=== PATIENT | male | born 1965 | race Caucasian/White ===

== ENCOUNTER 2017-05-16 08:54 | Day surgery (SDC) | payer BC ==
[2017-05-16] MEDS ORDERED: PROPOFOL 10 MG/ML VIAL IV ONE (08:55)
[2017-05-16] MEDS ORDERED: KETOROLAC 30 MG/ML VIAL IVP ONE (08:55)
[2017-05-16] MEDS ORDERED: LIDOCAINE 2% MDV (20MG/ML) 20ML VIAL IV ONE (08:55)
--- NOTE | 2017-05-16 14:40 | Operative Note ---
DATE OF SURGERY: 05/16/2017 OPERATION: COLONOSCOPY to the cecum with cold snare polypectomy x1. INDICATION: Colorectal cancer screening. This is the patient's first examination. ANESTHESIA: Intravenous sedation was administered by the department of anesthesiology and included Diprivan titrated to effect. PROCEDURE: Following informed consent from this alert individual including a discussion of the risks and benefits of the procedure and an opportunity for the patient to ask questions, the patient was in the left lateral decubitus position. A digital rectal examination was performed. No abnormalities were noted. Following this, the Olympus XWV006 video colonoscope was inserted into the rectum without resistance. The rectal mucosa had a normal appearance with normal folds and distensibility. The colonoscope was advanced up through the colon to the level of the cecum without much difficulty. Throughout the bowel the mucosa appeared normal, the folds were normal, and the bowel was fairly well distensible. There were a few small scattered diverticula noted in the sigmoid region. The cecum was well defined by noting the appendiceal orifice and ileocecal valve. Colon preparation was good. From the base of the cecum, the colonoscope was then withdrawn. No additional changes were noted until the distal rectum as reached. At this point, there was a 4 mm sessile polyp noted at the distal rectum which was removed with 1 application of cold snare polypectomy. Retroflexion in the rectum was unremarkable. The patient tolerated the procedure well and was returned to the recovery area in stable condition. IMPRESSION: 1. A 4 mm distal rectal polyp removed with cold snare polypectomy. 2. Mild sigmoid diverticulosis. RECOMMENDATIONS: The patient was advised he should receive a copy of his pathology report at home in the next 2-3 weeks. If not, he was asked to call my office to review the results of testing today. Further recommendations forthcoming pending those results. Followup will also be with Joaquín Villarreal DO. As always, thank you for allowing me to participate in the care of your patient. CC: DO SWEETIE Lyn
== END 2017-05-16 11:22 | disposition home or self-care (01) ==
LOC: HOP 08:54
PROVIDERS: ATTEND Internal Medicine Gastroenterology
DX: Z12.11 Encounter for screening for malignant neoplasm of colon (principal); K62.1 Rectal polyp; K57.30 Diverticulosis of large intestine without perforation or abscess without bleeding; I10 Essential (primary) hypertension; E78.00 Pure hypercholesterolemia, unspecified
CPT/HCPCS: 45385; 00811; J1885